=== PATIENT | female | born 1975 | race Caucasian/White ===

== ENCOUNTER 2016-07-15 12:04 | Emergency (ER) | payer OTHER ==
[2016-07-15] MEDS ORDERED: ONDANSETRON 4 MG ODT TAB ONE (13:33)
[2016-07-15] MEDS ORDERED: METOCLOPRAMIDE HCL 5 MG/ML 2ML VIAL ONE (13:33)
[2016-07-15] MEDS ORDERED: KETOROLAC TROMETHAMINE 60 MG/2 ML VIAL ONE (13:33)
[2016-07-15] MEDS ORDERED: DIPHENHYDRAMINE HCL 50 MG/1 ML VIAL ONE (13:33)
== END 2016-07-15 14:16 | disposition home or self-care (01) ==
LOC: ED 12:04
DX: G43.109 Migraine with aura, not intractable, without status migrainosus (principal)
CPT/HCPCS: 99283 ×2; 96372 ×3; J1200; J2765; J1885; A9270